=== PATIENT | female | born 1950 | race American Indian/Alaskan Native ===

== ENCOUNTER 2017-03-14 10:07 | Emergency (ER) | payer OTHER ==
[2017-03-14 10:15] VITALS: RESP 18; TEMP 98; O2SAT 100
--- NOTE | 2017-03-14 11:48 | C.PDOC ---
History Of Present Illness 66 yr old female BIBA for evaluation of right knee pain gradually developing for the past few weeks. Patient states the pain is localized and worse with movement. Patient denies any known trauma, injury, obvious deformity of the right knee, denies weakness , sensory or vascular deficits to Right leg, denies Right calf pain. Ambulatory in Ed with baseline gait, not in any apparent distress. Time Seen by Provider: 03/14/17 11:06 Chief Complaint (Nursing): Lower Extremity Problem/Injury History Per: Patient History/Exam Limitations: no limitations Onset/Duration Of Symptoms: Gradual (Few weeks) Past Medical History Reviewed: Historical Data, Nursing Documentation, Vital Signs Vital Signs: Last Vital Signs Temp 98.0 F 03/14/17 14:40 Pulse 73 03/14/17 14:40 Resp 18 03/14/17 14:40 BP 126/79 03/14/17 14:40 Pulse Ox 100 03/14/17 17:58 Family History: States: No Known Family Hx - Social History Hx Alcohol Use: No Hx Substance Use: No - Immunization History Hx Tetanus Toxoid Vaccination: No Hx Influenza Vaccination: No Hx Pneumococcal Vaccination: No Review Of Systems Except As Marked, All Systems Reviewed And Found Negative. Musculoskeletal: Positive for: Other ((+) Right knee pain) Neurological: Negative for: Weakness, Numbness Physical Exam - Physical Exam Appears: Well, Non-toxic, No Acute Distress Skin: Normal Color, Warm, Rash (dry rash/parhc to anterior aspect knee over patella R>L, no erythema, no cellulitis.), No Ecchymosis Extremity: Normal ROM (FAROM of Right knee), Tenderness (mild tendernes sover anterior aspect Right knee with mild trace edema. No erythema, no palpable deformity.), No Pedal Edema, No Calf Tenderness, Capillary Refill (less than 2sec to Right knee), No Deformity Neurological/Psych: Oriented x3, Normal Speech, Normal Motor, Normal Sensation, Normal Reflexes ED Course And Treatment O2 Sat by Pulse Oximetry: 100 (RA) Pulse Ox Interpretation: Normal - Other Rad X-Ray - Right Knee X-Ray: Interpreted by Me, Viewed By Me Interpretation: mod DJD, no acute fx or dislocation Progress Note: On re-eavluation, pt is afebrile, hemodynamicaly stable. Non- toxic. Right knee: exam c/w Right knee arthralgia, No defomrity, no effusion. FAROM, no neurovascular deficits. XRay review (+) MOD DJD, no acute fx. Pt advised on course of ds. ref. to F/u with Ortho in 2-3 days for re-eval. return if any new changes. Medical Decision Making Medical Decision Making: PLAN: * X-Ray - Right Knee * Tramadol PO * Prednisone PO Disposition Counseled Patient/Family Regarding: Studies Performed, Diagnosis, Need For Followup, Rx Given - Disposition Referrals: [facility] at [facility] [Outside] Disposition: HOME/ ROUTINE Disposition Time: 11:57 Condition: STABLE Additional Instructions: LIGHT DUTY TO KNEE, AVOID PROLONG WALKING TAKE MEDICATION PRESCRIBED FOLLOW UP WITH ORTHOPEDIST AT [facility] IN 1-2 DAYS FOR RE- EVALUATION. RETURN TO ED IF ANY WORSENING OR NEW CHANGES. 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 - Scribe Statement The provider has reviewed the documentation as recorded by the Scribtl Mendenhall All medical record entries made by the Lavernibtl were at my direction and personally dictated by me. I have reviewed the chart and agree that the record accurately reflects my personal performance of the history, physical exam, medical decision making, and the department course for this patient. I have also personally directed, reviewed, and agree with the discharge instructions and disposition.
[2017-03-14 14:44] VITALS: BP 126/79; PULSE 73
--- NOTE | 2017-03-14 16:42 | RAD ---
PROCEDURE: Right Knee Radiographs. HISTORY: pain COMPARISON: None. FINDINGS: BONES: Normal. No fracture. JOINTS: Tricompartmental osteoarthritis. No articular erosion. JOINT EFFUSION: None. OTHER FINDINGS: None. IMPRESSION: Tricompartmental osteoarthritis.
== END 2017-03-14 14:51 | disposition home or self-care (01) ==
LOC: C.ER 10:07
DX: M13.861 Other specified arthritis, right knee (principal); M25.561 Pain in right knee

== ENCOUNTER 2018-02-05 20:48 | Emergency (ER) | payer OTHER ==
[2018-02-05 20:48] VITALS: BMI 36.1
--- NOTE | 2018-02-05 21:16 | C.PDOC ---
History Of Present Illness 67 year old female is sent from [facility] for c/o itching and crawling sensation over her body. Patient was previously diagnosed with scabies and reports she has been compliant with her permethrin cream. Patient denies fever, chills, nausea, vomit, diarrhea. Time Seen by Provider: 02/05/18 21:13 Chief Complaint (Nursing): Abnormal Skin Integrity History Per: Patient History/Exam Limitations: no limitations Onset/Duration Of Symptoms: Days Current Symptoms Are (Timing): Still Present Location Of Injury: Anterior: Chest, Posterior: Back Quality Of Symptoms: Itching Recent travel outside of the [place]: No Additional History Per: Patient Past Medical History Reviewed: Historical Data, Nursing Documentation, Vital Signs - Medical History PMH: HTN Surgical History: No Surg Hx Family History: States: Unknown Family Hx - Social History Hx Alcohol Use: No Hx Substance Use: No - Immunization History Hx Tetanus Toxoid Vaccination: No Hx Influenza Vaccination: No Hx Pneumococcal Vaccination: No Review Of Systems Constitutional: Negative for: Fever, Chills Cardiovascular: Negative for: Chest Pain Respiratory: Negative for: Shortness of Breath Gastrointestinal: Negative for: Nausea, Vomiting, Abdominal Pain Skin: Positive for: Rash Neurological: Negative for: Weakness, Numbness Physical Exam - Physical Exam Appears: Non-toxic, No Acute Distress Skin: Normal Color, Warm, Dry, Other (chest and upper back 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, no active lesions) Head: Atraumatic, Normacephalic Eye(s): bilateral: Normal Inspection Oral Mucosa: Moist Neck: Normal ROM Chest: Symmetrical Cardiovascular: Rhythm Regular Respiratory: Normal Breath Sounds, No Rales, No Rhonchi, No Wheezing Gastrointestinal/Abdominal: Soft, No Tenderness, No Guarding, No Rebound Extremity: Normal ROM, No Tenderness, No Swelling Neurological/Psych: Oriented x3, Normal Speech, Normal Cognition Gait: Steady ED Course And Treatment O2 Sat by Pulse Oximetry: 98 (ON RA) Pulse Ox Interpretation: Normal Progress Note: Plan: - Benadryl 25 mg PO Disposition Counseled Patient/Family Regarding: Diagnosis, Need For Followup, Rx Given - Disposition Referrals: [facility] at [facility] [Outside] Disposition: HOME/ ROUTINE Disposition Time: 21:30 Condition: STABLE Additional Instructions: THERE IS NO EVIDENCE OF ACTIVE SCABIES OR OTHER INFESTATION ON THIS PATIENT!! USE BENADRYL FOR ITCHING RETURN TO ER IF SYMPTOMS WORSEN Prescriptions: DiphenhydrAMINE [Benadryl] 25 mg PO Q6 PRN #20 cap PRN Reason: Itching / Pruritus Forms: [facility] (Spanish), General Discharge Instructions Print Language: AMHARIC - POA Present On Arrival: None - Clinical Impression Clinical Impression: Itchy skin - Scribe Statement The provider has reviewed the documentation as recorded by the Scribe Ortega Watkins All medical record entries made by the Lavernibe were at my direction and personally dictated by me. I have reviewed the chart and agree that the record accurately reflects my personal performance of the history, physical exam, medical decision making, and the department course for this patient. I have also personally directed, reviewed, and agree with the discharge instructions and disposition.
[2018-02-05 21:38] VITALS: RESP 18; O2SAT 98
[2018-02-05 21:43] VITALS: BP 132/79; PULSE 78; TEMP 98.4
== END 2018-02-05 21:38 | disposition home or self-care (01) ==
LOC: SUPCPDRO 20:48 → C.ER 20:48
DX: L29.9 Pruritus, unspecified (principal)

== ENCOUNTER 2018-03-01 12:13 | Emergency (ER) | payer OTHER ==
[2018-03-01 12:34] VITALS: BMI 33.6
[2018-03-01 13:50] LABS: BASO % 0.9 % (0.0-2.0); EOS % 0.4 % (0.0-4.0); HEMOGLOBIN 12.1 g/dL (11.0-16.0); LYMPH # 1.1 K/uL (1.0-4.3); LYMPH % 25.8 % (20.0-40.0); MEAN CELL VOLUME 82.8 fL (81.0-99.0); MEAN CORPUSCULAR HEMOGLOBIN 27.7 pg (27.0-31.0); MEAN CORPUSCULAR HGB CONC 33.4 g/dL (33.0-37.0); MEAN PLATELET VOLUME 8.7 fL (7.2-11.7); MONO # 0.8 K/uL (0.0-0.8); MONO % 18.8 % (0.0-10.0); NEUT # 2.4 K/uL (1.8-7.0); NEUT % 54.1 % (50.0-75.0); NRBC % 0.2 % (0.0-2.0); RBC 4.39 Mil/uL (3.80-5.20); RED CELL DISTRIBUTION WIDTH 15.3 % (11.5-14.5); WHITE BLOOD COUNT 4.4 K/uL (4.8-10.8)
[2018-03-01 14:03] LABS: ALBUMIN 3.9 g/dL (3.5-5.0); ALT/SGPT 10 U/L (9-52); AST/SGOT 16 U/L (14-36); BLOOD UREA NITROGEN 15 mg/dL (7-17); CALCIUM 8.9 mg/dl (8.6-10.4); GFR NON-AFRICAN AMERICAN > 60
--- NOTE | 2018-03-01 14:54 | C.PDOC ---
History Of Present Illness 67 y/o female presents to ED with c/o something crawling up her back and upper her head. Patient also c/o back pain and denies fever, chills, dysuria, hematuria, bowel/bladder incontinence, recent travel or any other complaints at this time. Time Seen by Provider: 03/01/18 12:55 Chief Complaint (Nursing): Medical Clearance History Per: Patient History/Exam Limitations: no limitations Onset/Duration Of Symptoms: Days Current Symptoms Are (Timing): Still Present Past Medical History Reviewed: Historical Data, Nursing Documentation, Vital Signs Vital Signs: Last Vital Signs Temp 98.3 F 03/01/18 12:35 Pulse 96 H 03/01/18 12:35 Resp 20 03/01/18 12:35 BP 119/73 03/01/18 12:35 Pulse Ox 97 03/01/18 12:35 - Medical History PMH: HTN Surgical History: No Surg Hx Family History: States: No Known Family Hx - Social History Hx Alcohol Use: No Hx Substance Use: No - Immunization History Hx Tetanus Toxoid Vaccination: No Hx Influenza Vaccination: No Hx Pneumococcal Vaccination: No Review Of Systems Constitutional: Negative for: Fever, Chills Gastrointestinal: Negative for: Nausea, Vomiting, Abdominal Pain Genitourinary: Negative for: Dysuria, Hematuria Musculoskeletal: Positive for: Back Pain Skin: Negative for: Rash Physical Exam - Physical Exam Appears: Non-toxic, No Acute Distress Skin: Warm, Dry, No Rash, Other (insect bites to back noted) Head: Atraumatic, Normacephalic Eye(s): bilateral: Normal Inspection Oral Mucosa: Moist Neck: Normal ROM, No Midline Cervical Tenderness, No Paracervical Tenderness, Supple Chest: Symmetrical, No Tenderness Cardiovascular: Rhythm Regular, No Friction Rub, No Murmur Respiratory: Normal Breath Sounds, No Rales, No Rhonchi, No Stridor, No Wheezing Gastrointestinal/Abdominal: Soft, No Tenderness, No Guarding, No Rebound Back: No CVA Tenderness, No Vertebral Tenderness, No Paraspinal Tenderness Extremity: Normal ROM, No Swelling Neurological/Psych: Oriented x3, Normal Speech, Normal Cognition, Normal Motor Gait: Steady ED Course And Treatment - Laboratory Results Result Diagrams: 03/01/18 13:41 03/01/18 13:41 O2 Sat by Pulse Oximetry: 97 (RA) Pulse Ox Interpretation: Normal Medical Decision Making Medical Decision Making: Labs and Vitals are WNLs. On re-exam, the patient is stable and resting comfortably. Lungs are CTA, heart is RRR, abdomen is soft, non-tender and the patient is tolerating PO well. Ambulatory in the ED with steady gait. Follow up with the medical doctor within 1-2 days. Return if worsened. Disposition - Disposition Referrals: [facility] at [facility] [Outside] Disposition: HOME/ ROUTINE Disposition Time: 14:52 Condition: STABLE Additional Instructions: Follow up with the medical doctor within 1-2 days. Return if worsened. Prescriptions: Clotrimazole/Betamethasone [Lotrisone] 15 gm EXT BID #2 tube Ibuprofen [Motrin] 1 tab PO TID PRN #30 tab PRN Reason: Pain Instructions: Low Back Pain in Adults Forms: [facility] (Persian) - Clinical Impression Clinical Impression: Itchy skin, Back pain - PA / NEUROSURGICAL PHYSICIAN ASSISTANT / Resident Statement MD/DO has reviewed & agrees with the documentation as recorded. - Scribe Statement The provider has reviewed the documentation as recorded by the Tracy Trujillo All medical record entries made by the Tracy were at my direction and personally dictated by me. I have reviewed the chart and agree that the record accurately reflects my personal performance of the history, physical exam, medical decision making, and the department course for this patient. I have also personally directed, reviewed, and agree with the discharge instructions and disposition.
[2018-03-01 15:44] VITALS: BP 130/61; PULSE 82; RESP 18; TEMP 98.6
[2018-03-01 16:49] VITALS: O2SAT 97
== END 2018-03-01 15:15 | disposition home or self-care (01) ==
LOC: C.ER 12:13
DX: M54.9 Dorsalgia, unspecified (principal); L29.9 Pruritus, unspecified